=== PATIENT | male | born 1965 | race Caucasian/White ===

== ENCOUNTER → 2018-01-18 | Outpatient (CLI) | payer OTHER | LOC: LAB SHORT 07:27 → PLD 07:27 | DX: L30.9 Dermatitis, unspecified (principal); L90.5 Scar conditions and fibrosis of skin | CPT/HCPCS: 88312 ==

== ENCOUNTER 2022-03-26 08:30 | Emergency (ER) | payer OTHER ==
[~2022-03-26] VITALS: Ht 172.7 cm; Wt 81.7 kg
== END 2022-03-26 11:04 | disposition home or self-care (01) ==
LOC: ER 08:30
DX: I83.92 Asymptomatic varicose veins of left lower extremity (principal); F17.200 Nicotine dependence, unspecified, uncomplicated
CPT/HCPCS: 99282